=== PATIENT | male | born 2000 | race Caucasian/White ===

== ENCOUNTER 2020-12-06 11:56 | Outpatient (REF) | payer OTHER, SELFPAY ==
--- NOTE | ~2020-12-06 | XR_ITS ---
EXAMINATION: XR WRIST, RIGHT CLINICAL INFORMATION: Pain right wrist COMPARISON: None TECHNIQUE: PA, lateral, and oblique views of the right wrist. FINDINGS: There is no fracture or dislocation. The ulnar variance is neutral. There is no joint narrowing, erosive change, or chondrocalcinosis. The pronator quadratus fat pad appears normal. There is normal bony mineralization. No destructive process or periostitis. XR/XR wrist RT min 3V IMPRESSION: Normal right wrist.
== END 2020-12-06 11:57 | disposition home or self-care (01) ==
LOC: HO.HMGCX 11:56
PROVIDERS: Visit Provider Nurse Practitioner Family
DX: M25.531 Pain in right wrist (principal)
CPT/HCPCS: 73110

== ENCOUNTER 2023-06-03 14:13 | Emergency (ER) | payer OTHER, SELFPAY ==
[2023-06-03 14:38] VITALS: BP 102/75; PULSE 68; RESP 18; TEMP 36.8; O2SAT 98; BMI 18.2
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
== END 2023-06-03 14:58 | disposition home or self-care (01) ==
PROVIDERS: Emergency Provider Emergency Medicine Emergency Medical Services
DX: Z04.1 Encounter for examination and observation following transport accident (principal)
CPT/HCPCS: 99282; 99283